=== PATIENT | female | born 1995 | race Caucasian/White ===

== ENCOUNTER → 2020-05-17 09:00 | Outpatient (BNVA) | payer SELFPAY | PROVIDERS: Family Provider Pediatrics Adolescent Medicine; PCP Pediatrics Adolescent Medicine; Visit Provider Nurse Practitioner | DX: Z34.90 Encounter for supervision of normal pregnancy, unspecified, unspecified trimester (principal) | CPT/HCPCS: 81025 ==

== ENCOUNTER 2021-01-12 04:13 | Inpatient (IN) | payer BC, SELFPAY ==
[2021-01-12] VITALS (128 sets, daily range): BP systolic 89–161; BP diastolic 50–109; PULSE 68–151; RESP 16–18; TEMP 35.9–37.7; O2SAT 87–100; BMI 31.4
[2021-01-12 05:00] LABS: Basophils % 0.2 %; Eosinophils % 0.2 %; Hematocrit 36.1 % (37.0-47.0); Lymphocytes # 1.7 10^3/uL (0.8-4.8); Lymphocytes % 12.4 %; Mean Corpuscular HGB Conc 33.2 g/dL (30.0-36.0); Mean Corpuscular Hemoglobin 29.1 pg (28.0-34.0); Mean Corpuscular Volume 87.4 fl (81-99); Mean Platelet Volume 12.9 fL (7.4-10.4); Monocytes # 0.9 10^3/uL (0.2-0.9); Monocytes % 6.5 %; Neutrophils # 10.86 10^3/uL (1.8-7.7); Neutrophils % 80.1 %; Nucleated Red Blood Cells % 0 %; Platelet Count 193 10^3/cmm (130-400); Red Blood Count 4.13 10^6/uL (4.1-5.3); Red Cell Distribution Width 13.2 % (12.1-15.1); White Blood Count 13.6 10^3/uL (4.0-10.0)
[2021-01-12] MEDS: lactated ringers 1,000 ML 999 ML IV (05:15)
--- NOTE | 2021-01-12 07:01 | ANES.PREANE2 ---
Pre-Anesthetic Assessment Pre-Anesthetic Assessment: Height/Weight: Height 1.63 m Weight 83.007 kg Temp Pulse Resp BP Pulse Ox 97.0 F L 116 H 18 130/74 99 01/12/21 00:38 01/12/21 06:56 01/12/21 03:57 01/12/21 06:56 01/12/21 06:54 Preop Diagnosis: Active Labor Familial anesthetic complications: none Was Beta Darby taken within 24 hours: N/A Was Clonidine taken within 24 hours: N/A Social: Social History: No alcohol and No tobacco Exam: Pre-Anes Outpt Exam: alert, oriented x 3 and clear to auscultation bilaterally Airway: Submandibular: WNL Cervical ROM: WNL MP: 2 Dentition: Full History/ROS: No significant history except as noted Pulmonary: Pulmonary: None reported CV/HEM: CV/HEM: None reported : : None reported Hepatic: Hepatic: None reported GI: GI: None reported Metabolic: Metabolic: None reported Musc/skel: Musc/skel: None reported Neuropsych: Neuropsych: Anxiety Anesthetic Plan: ASA status: 2 Anesthesia: Regional (specify below) Other: epidural Risk of > 500 ml blood loss (7ml/kg in children): No PFSH Anesthesia PFSH: Social History Smoking and tobacco status: never smoked Female Reproductive History: : 1 Data Anesthesia CBC & Chem 7: 01/12/21 03:30 Other Labs: Laboratory Results - last 48 hr 01/12/21 03:30 WBC 13.6 H RBC 4.13 Hgb 12.0 Hct 36.1 L MCV 87.4 MCH 29.1 MCHC 33.2 RDW 13.2 Plt Count 193 MPV 12.9 H Neut % (Auto) 80.1 Lymph % (Auto) 12.4 [place] % (Auto) 6.5 Eos % (Auto) 0.2 Baso % (Auto) 0.2 Neut # (Auto) 10.86 H Lymph # (Auto) 1.7 [place] # (Auto) 0.9 Eos # (Auto) 0.0 Baso # (Auto) 0.0 Nucleated RBC % (auto) 0 Nucleated RBCs # 0.0 Cardiac Studies: No Data to Display
--- NOTE | 2021-01-12 07:04 | ANES.PROC ---
Anesthesia Procedures Procedure/Date: 01/12/21 Epidural: Time Out Performed: Yes Consents Signed: Procedure Consent Consent: from patient Lumbar Level: L3-L4 Epidural position: sitting Epidural procedure: sterile prep of area, 1% lidocaine to numb the area, negative for paresthesia passed, test dose given, 1.5% xylocaine 1:200k epi, placed PCEA, no systemic response, sterile dressing applied, L.U.D. no apparent complications and 0.2% Ropiavacaine @ mls/hr (11) Additional Comments: PHILIP at 8cm catheter threaded to 14 cm.
[2021-01-12] MEDS: dextrose 5%-lactated ringers 1,000 ML 125 ML IV ×2 (08:42→10:08)
[2021-01-12] MEDS: oxytocin 30 UNIT/500 ML BAG IV (08:42)
--- NOTE | 2021-01-12 19:11 | PM.OPHPUD ---
Labor & Delivery H&P Update Date of Procedure: January 12, 2021 Date H&P Performed: 01/08/21 H&P update information: I have reviewed H&P completed within last 30 days, I have examined patient prior to procedure and Changes to prior documentation as noted here Changes to previous documentation: The patient is having contractions every 5 to 7 minutes. Admission Diagnosis: Preop diagnosis: Active Labor Planned procedure: Spontaneous vaginal delivery Related Problem List Diagnoses (1) 40 weeks gestation of :
--- NOTE | 2021-01-12 19:26 | PM.DELIVERY ---
Delivery Note: Date of delivery: January 12, 2021 Pre-Delivery Course: The patient is a 25-year-old at 40 weeks Estimated gestational age. The patient presented to the hospital in active labor. She was given an epidural. Her contractions began to space out. She was placed Pitocin. She had a spontaneous rupture of membranes. She progressed to complete without difficulty. Her has been unremarkable. Her blood type is O+. Her glucose screen was negative. Her GBS status is negative. Her Covid status is negative. The remainder of her labs are within normal limits. Delivery: DELIVERY: The patient progressed to complete without difficulty. She delivered a female with a weight of 7 pounds 7 ounces with Apgars of 9, 9. The baby was delivered from the CRISTY position and placed on the mother's abdomen. The cord was then clamped and cut 1 minute after delivery. There was a nuchal cord x1. A true knot was noted in the cord.. Terminal meconium was noted.. The placenta and 3 vessel cord were delivered intact shortly thereafter. The perineum and vaginal vault were carefully examined. A posterior left vaginal wall laceration was noted. It was repaired with 3-0 Vicryl in a running stitch. Both the mother and the baby were in stable condition. A&P Assessment and plan (1) 40 weeks gestation of : I anticipate routine care. If she does well, I anticipate she will be discharged tomorrow evening. Status: Acute Coding Level of Care Code Acute Credit Correspondence Clerk for Chg Fwd Diagnoses 40 weeks gestation of Z3A.40
[2021-01-12] MEDS: benzocaine-menthol 78 gm Canister 1 SPRAY TOPICAL (21:47)
[2021-01-12] MEDS: lanolin oint 7 gm 1 APPLIC TOPICAL (21:47)
[2021-01-12] MEDS: ibuprofen 800 mg tablet PO (21:47)
[2021-01-13 00:30] VITALS: BP 139/76; PULSE 72; TEMP 36.7; O2SAT 98
[2021-01-13 02:40] VITALS: BP 125/63; PULSE 71; RESP 14; O2SAT 97
[2021-01-13 04:30] VITALS: BP 125/81; PULSE 76; TEMP 36.2; O2SAT 97
[2021-01-13 06:06] LABS: Hematocrit 30.5 % (37.0-47.0); Hemoglobin 10.1 g/dL (11.5-15.3); Mean Corpuscular HGB Conc 33.1 g/dL (30.0-36.0); Mean Corpuscular Hemoglobin 29.1 pg (28.0-34.0); Mean Corpuscular Volume 87.9 fl (81-99); Mean Platelet Volume 12.1 fL (7.4-10.4); Platelet Count 150 10^3/cmm (130-400); Red Blood Count 3.47 10^6/uL (4.1-5.3); Red Cell Distribution Width 13.3 % (12.1-15.1); White Blood Count 14.7 10^3/uL (4.0-10.0)
--- NOTE | 2021-01-13 07:35 | P.DS_ITS ---
Discharge Providers ASSOCIATE PROFESSOR OF KINESIOLOGY Date of Admission: 01/12/21 04:13 Date of Discharge: 01/13/21 Attending Provider at Admission: Kentrell Welch MD Attending Provider at Discharge: Kentrell Welch MD Primary Care Provider: Clarence Bonds Jr, MD Diagnoses at Discharge Discharge Diagnosis (1) 40 weeks gestation of : Status: Acute Reason for Visit Reason for Visit: contractions Hospital Course Hospital Course The patient is a 25-year-old 1 at 40 weeks who presented to the hospital in active labor. She received an epidural. Her labor was augmented with Pitocin. She had spontaneous rupture of membranes. She progressed to complete without difficulty and pushed for about 45 minutes and had an unremarkable delivery of a healthy-appearing term female infant. Her course was unremarkable. Her bleeding was within normal limits. Her pain was well con trolled. She breast-fed well. There were no concerns. Information Peripartum Data: Delivery Method: Vaginal Physical Exam Narrative: EXAM NARRATIVE: The patient is alert. She appears comfortable. Her heart has a regular rate and rhythm with no murmurs appreciated. Lungs are clear to auscultation bilaterally. Her fundus is firm and below the umbilicus. Discharge Data Data Completed and Pending: Labs from last 24 hours 01/13/21 05:54 WBC 14.7 H RBC 3.47 L Hgb 10.1 L Hct 30.5 L MCV 87.9 MCH 29.1 MCHC 33.1 RDW 13.3 Plt Count 150 MPV 12.1 H Vitals: Last Vital Signs Temp 97.1 F L 01/13/21 04:30 Pulse 76 01/13/21 04:30 Resp 14 01/13/21 02:40 BP 125/81 01/13/21 04:30 Pulse Ox 97 01/13/21 04:30 Discharge Plan Discharge Patient Disposition: Home Condition: Stable Prescriptions: New ibuprofen 800 mg Tablet 800 mg PO TID Qty: 45 RF: 0 Continued prenat.vits,rigo,dvk-wwza-ahqfv Tablet 1 tab PO DAILY RF: 0 Discharge Orders: Discharge Order (Routine); Ordered 01/13/21 Ordered By: Kentrell Welch Referrals: Kentrell Welch MD [Physician] - 6 Weeks Discharge Diet: Usual diet Discharge Activity: Limit activity as instructed Patient Instructions: Depression (DC), Bleeding (DC), Pre eclampsia and Eclampsia After Delivery (GEN), OB Discharge Report, OB Food/Drug Interaction Guide, Opioid Safety, OB Home Care, OB Vaginal Deliveries - [facility] Discharge Attestations ASSOCIATE PROFESSOR OF KINESIOLOGY Time Spent in Discharge Care*: less than 30 min Specific Discharge Activities: Specific discharge activities: educating patient and educating and/or supporting family/caregiver Coding Level of Care Code Acute It Application Architect for Chg Fwd Diagnoses 40 weeks gestation of Z3A.40
[2021-01-13] MEDS: docusate sodium 100 mg Capsule PO (09:28)
[2021-01-13] MEDS: prenatal vitamin Capsule 1 CAP PO (09:28)
[2021-01-13] MEDS: ibuprofen 800 mg tablet PO ×2 (09:28→16:03)
[2021-01-13 10:00] VITALS: BP 144/82; PULSE 78; TEMP 36.7
[2021-01-13 16:00] VITALS: BP 125/73; PULSE 73; TEMP 36.7
[2021-01-13 20:40] VITALS: BP 123/79; PULSE 90; RESP 16; O2SAT 97
--- NOTE | 2021-01-14 07:38 | ANE.PACU2 ---
Inpatient post-anesthesia follow up: Airway intact: Yes Vital signs: Temperature 98.0 F Pulse Rate 90 Respiratory Rate 16 Blood Pressure 123/79 Pulse Oximetry 97 Oxygen Delivery Me thod Room Air Oxygen Flow Rate Fraction of Inspir ed Oxygen Hydration adequate: Yes Nausea and vomiting: No Pain level: 1 Mental status: Baseline Additional Comments: EMR Review
== END 2021-01-13 19:45 | disposition home or self-care (01) | DRG 806 ==
LOC: OPOB 04:14 → OBGYN 04:14
PROVIDERS: Admitting Provider Family Medicine; PCP Pediatrics Adolescent Medicine; Visit Provider Family Medicine
DX: O69.2XX0 Labor and delivery complicated by other cord entanglement, with compression, not applicable or unspecified (principal); O71.4 Obstetric high vaginal laceration alone; Z37.0 Single live birth; Z3A.40 40 weeks gestation of pregnancy
CPT/HCPCS: 12345; 36415; 59025; 59409; 85025; 85027; 99211; J2795

== ENCOUNTER 2021-03-01 06:42 | Day surgery (SDC) | payer BC, SELFPAY ==
[2021-03-01] VITALS (15 sets, daily range): BP systolic 131–159; BP diastolic 78–115; PULSE 106–130; RESP 12–20; TEMP 36.2–39.2; O2SAT 92–98; BMI 26.6
[2021-03-01] MEDS: sodium chloride 0.9% 1,000 ML 999 ML IV (07:45)
[2021-03-01 08:14] LABS: Eosinophils % 1.6 %; Mean Corpuscular HGB Conc 32.5 g/dL (30.0-36.0); Mean Corpuscular Volume 83.6 fl (81-99); Nucleated Red Blood Cells % 0 %
--- NOTE | 2021-03-01 08:20 | ED_ITS ---
Documented by User: NITESH Cisneros 03/01/21 10:25 HPI - COVID General: Chief Complaint: Abdominal Pain Stated Complaint: COV positive, abdominal pain Time Seen by Provider: 03/01/21 08:20 Triage information: Has fever, cough or shortness of breath . Exposure to COVID + person last 14 days History of Present Illness: HPI Narrative: Patient presents with abdominal discomfort intermittently since February 02. Was treated for UTI and got feeling better after 5 days of antibiotics after urine came back showing UTI. Patient went back second week in February thinks she may have a UTI again because she is having some abdominal discomfort and fever and some nausea. Patient was diagnosed with COVID last Wednesday. Patient had nausea and vomiting last couple days and feels dehydrated. Patient is currently breast-feeding and has been for 7 weeks. Last day she had a fever was yesterday. Does complain dry cough. complaint: known COVID positive Prior covid testing: yes, results known Prior testing date: 02/18/21 COVID 19 common symptoms: positive fever(s), chills, non-productive cough, body aches, nausea and vomiting; negative headache(s), throat pain or nasal conges tion COVID 19 other sytmptoms: negative chest pain Pertinent comorbid conditions: other Treatment prior to arrival: acetaminophen and ibuprofen COVID Results: No Data to Display Review of Systems Const: Reports: fever(s), chills and body aches Eyes: Denies: change in vision or blurry vision ENMT: Denies: throat pain or nasal congestion Card: Denies: chest pain or dyspnea on exertion Resp: Reports: non-productive cough GI: Reports: nausea and vomiting Musc: Denies: extremity pain Skin/Breast: Denies: rash Neuro: Denies: headache(s) Psych: Denies: anxiety or depression [place]/Lymph: Denies: easy bruising PFSH ED PFSH: Medical History (Updated 03/01/21 @ 13:50 by Percy Lima MD) COVID-19 Surgical History (Updated 03/01/21 @ 11:38 by Percy Lima MD) Status post laparoscopic cholecystectomy (03/01/21) Social History Smoking and tobacco status: never smoked Physical Exam Narrative: EXAM NARRATIVE: Patient does not appear ill. Const: COMMON NORMALS: no acute distress, average body habitus and patient oriented x3 HENMT: COMMON NORMALS: normocephalic HEAD & SCALP: normal to inspection and normocephalic FACE & SINUS: normal facial exam Eye: COMMON NORMALS: conjunctivae normal GENERAL EYE: appearance normal, both eyes and all related structures CONJUNCTIVA: Yes conjunctivae normal Neck/C-Spine: COMMON NORMALS: no JVD Chest: COMMONS NORMALS: normal inspection of the chest Resp: COMMON NORMALS: normal respiratory effort Cardio: COMMON NORMALS: no JVD and regular rhythm RATE: tachycardic RHYTHM: regular rhythm GI: INSPECTION: Yes normal to inspection AUSCULTATION: Yes normoactive bowel sounds PALPATION: Yes Tenderness to palpation present (GI) (And generalized) Extremity: COMMON NORMALS: normal to inspection and full ROM Neuro: COMMON NORMALS: patient oriented x3 Skin: COMMON NORMALS: no rashes or lesions noted GENERAL SKIN EXAM: no gwen hes or lesions noted Course Vital Signs: Vital signs: Vital Signs Temperature 98.5 F 03/01/21 15:15 Pulse Rate 112 H 03/01/21 15:15 Respiratory Rate 16 03/01/21 15:15 Blood Pressure 132/78 03/01/21 15:15 Pulse Oximetry 98 03/01/21 15:15 MDM - COVID MDM Narrative Medical decision making narrative: Patient is young female who is 7 weeks .'s been having abdominal discomfort since February 02. Has tested positive for UTI and has had COVID. Patient with continued abdominal pain today. Patient is tachycardic. Laboratory showing elevated white count elevated transaminases. D-dimer was 1.2. At [place] criteria is 1.3% chance of PE. Lipase was normal at 20 gallbladder ultrasound come back and show acute calculus cholecystitis. Discuss ed case with Dr. Tejeda call Dr. iLma spoke with him he is going to get surgery. We will retest patient for COVID with an antigen test. Because patient said she really has not had COVID symptoms. Lab Data Result diagrams: 03/01/21 08:03 03/01/21 08:03 Labs: Lab Results 03/01/21 03/01/21 03/01/21 08:03 08:03 08:03 WBC 14.1 10^3/uL H 10^3/uL (4.0-10.0) RBC 4.52 10^6/uL 10^6/uL (4.1-5.3) Hgb 12.3 g/dL g/dL (11.5-15.3) Hct 37.8 % % (37.0-47.0) MCV 83.6 fl fl (81-99) MCH 27.2 pg L pg (28.0-34.0) MCHC 32.5 g/dL g/dL (30.0-36.0) RDW 12.7 % % (12.1-15.1) Plt Count 331 10^3/cmm 10^3/cmm (130-400) MPV 10.7 fL H fL (7.4-10.4) Neut % (Auto) 74.2 % % Lymph % (Auto) 9.8 % % [place] % (Auto) 13.9 % % Eos % (Auto) 1.6 % % Baso % (Auto) 0.1 % % Neut # (Auto) 10.44 10^3/uL H 10^3/uL (1.8-7.7) Lymph # (Auto) 1.4 10^3/uL 10^3/uL (0.8-4.8) [place] # (Auto) 2.0 10^3/uL H 10^3/uL (0.2-0.9) Eos # (Auto) 0.2 10^3/uL 10^3/uL (0.0-0.8) Baso # (Auto) 0.0 10^3/uL 10^3/uL (0.0-0.1) Nucleated RBC % (auto) 0 % % Nucleated RBCs # 0.0 /100WBC /100WBC D-Dimer 1.61 ug/mIFEU H ug/mIFEU (0-0.59) Sodium 138 mmol/L mmol/L (136-145) Potassium 3.3 mmol/L L mmol/L (3.5-5.1) Chloride 99 mmol/L mmol/L (98-107) Carbon Dioxide 22 mmol/L mmol/L (22-29) Anion Gap 20.3 H (5-19) BUN 6 mg/dL mg/dL (6-20) Creatinine 0.5 mg/dL mg/dL (0.5-0.9) GFR Calculation 152.9 mL/min H mL/min (90-130) Glucose 99 mg/dL mg/dL (65-115) Calculated Osmolality 284 mOsm/kg L mOsm/kg (285-295) Calcium 9.6 mg/dL mg/dL (8.5-10.5) Total Bilirubin 0.3 mg/dL mg/dL (0.15-1.2) AST 31 U/L U/L (0-32) ALT 53 U/L H U/L (0-33) Alkaline Phosphatase 113 IU/L H IU/L (35-105) Total Protein 8.3 g/dL g/dL (6.6-8.7) Albumin 4.0 g/dL g/dL (3.5-5.2) Globulin 4.3 g/dL g/dL (1.3-4.6) Lipase 21 U/L U/L (13-60) HCG, Qual Urine Color Urine Appearance Urine pH Ur Specific [place] Urine Protein Urine Glucose (UA) Urine Ketones Urine Blood Urine Nitrate Urine Bilirubin Urine Urobilinogen Ur Leukocyte Esterase Urine RBC Urine WBC Ur Squamous Epith Cells Amorphous Sediment Urine Bacteria Urine Mucus 03/01/21 03/01/21 08:35 08:35 WBC RBC Hgb Hct MCV MCH MCHC RDW Plt Count MPV Neut % (Auto) Lymph % (Auto) [place] % (Auto) Eos % (Auto) Baso % (Auto) Neut # (Auto) Lymph # (Auto) [place] # (Auto) Eos # (Auto) Baso # (Auto) Nucleated RBC % (auto) Nucleated RBCs # D-Dimer Sodium Potassium Chloride Carbon Dioxide Anion Gap BUN Creatinine GFR Calculation Glucose Calculated Osmolality Calcium Total Bilirubin AST ALT Alkaline Phosphatase Total Protein Albumin Globulin Lipase HCG, Qual Negative (Negative) Urine Color Dark yellow (Yellow) Urine Appearance Clear (CLEAR) Urine pH 5 (5-7) Ur Specific [place] 1.015 (1.005-1.030) Urine Protein 2+ H (Negative) Urine Glucose (UA) Norm (Normal) Urine Ketones 1+ H (Negative) Urine Blood Neg (Negative) Urine Nitrate Negative (Negative) Urine Bilirubin Neg (Negative) Urine Urobilinogen 1 mg/dL H mg/dL (Negative) Ur Leukocyte Esterase Negative (Negative) Urine RBC None /hpf /hpf (0-2) Urine WBC 0-4 /hpf H /hpf (0-5) Ur Squamous Epith Cells 0-4 /hpf H /hpf (0-5) Amorphous Sediment Not Reportable Urine Bacteria Trace /hpf /hpf (NONE) Urine Mucus 1+ /hpf /hpf COVID Results: No Data to Display Discharge Plan Discharge Patient Disposition: Placed in Observation Clinical Impression: Acute calculous cholecystitis Coding Level of Care Code ED Manager Cargo for Chg Fwd Exam Comprehensive Documented by User: Robin Pressley MD 03/05/21 22:01 HPI - COVID General: Chief Complaint: Abdominal Pain Stated Complaint: COV positive, abdominal pain Time Seen by Provider: 03/01/21 08:20 COVID Results: No Data to Display [facility] ED PFSH: Medical History (Updated 03/01/21 @ 13:50 by Percy Lima MD) COVID-19 Surgical History (Updated 03/01/21 @ 11:38 by Percy Lima MD) Status post laparoscopic cholecystectomy (03/01/21) Social History Smoking and tobacco status: never smoked Course Vital Signs: Vital signs: Vital Signs Temperature 98.5 F 03/01/21 15:15 Pulse Rate 112 H 03/01/21 15:15 Respiratory Rate 16 03/01/21 15:15 Blood Pressure 132/78 03/01/21 15:15 Pulse Oximetry 98 03/01/21 15:15 MDM - COVID MDM Narrative Medical decision making narrative: I reviewed documentation regarding this patient's case. I discussed the case with Brien Reese NP. I reviewed laboratory studies and imaging. Due to computer error or recent update with integration problem this note appears blank however I reviewed the separate and complete documentation by Brien Reese NP. Robin Pressley MD Emergency Medicine Lab Data Result diagrams: 03/01/21 08:03 03/01/21 08:03 Labs: Lab Results 03/01/21 03/01/21 03/01/21 08:03 08:03 08:03 WBC 14.1 10^3/uL H 10^3/uL (4.0-10.0) RBC 4.52 10^6/uL 10^6/uL (4.1-5.3) Hgb 12.3 g/dL g/dL (11.5-15.3) Hct 37.8 % % (37.0-47.0) MCV 83.6 fl fl (81-99) MCH 27.2 pg L pg (28.0-34.0) MCHC 32.5 g/dL g/dL (30.0-36.0) RDW 12.7 % % (12.1-15.1) Plt Count 331 10^3/cmm 10^3/cmm (130-400) MPV 10.7 fL H fL (7.4-10.4) Neut % (Auto) 74.2 % % Lymph % (Auto) 9.8 % % [place] % (Auto) 13.9 % % Eos % (Auto) 1.6 % % Baso % (Auto) 0.1 % % Neut # (Auto) 10.44 10^3/uL H 10^3/uL (1.8-7.7) Lymph # (Auto) 1.4 10^3/uL 10^3/uL (0.8-4.8) [place] # (Auto) 2.0 10^3/uL H 10^3/uL (0.2-0.9) Eos # (Auto) 0.2 10^3/uL 10^3/uL (0.0-0.8) Baso # (Auto) 0.0 10^3/uL 10^3/uL (0.0-0.1) Nucleated RBC % (auto) 0 % % Nucleated RBCs # 0.0 /100WBC /100WBC D-Dimer 1.61 ug/mIFEU H ug/mIFEU (0-0.59) Sodium 138 mmol/L mmol/L (136-145) Potassium 3.3 mmol/L L mmol/L (3.5-5.1) Chloride 99 mmol/L mmol/L (98-107) Carbon Dioxide 22 mmol/L mmol/L (22-29) Anion Gap 20.3 H (5-19) BUN 6 mg/dL mg/dL (6-20) Creatinine 0.5 mg/dL mg/dL (0.5-0.9) GFR Calculation 152.9 mL/min H mL/min (90-130) Glucose 99 mg/dL mg/dL (65-115) Calculated Osmolality 284 mOsm/kg L mOsm/kg (285-295) Calcium 9.6 mg/dL mg/dL (8.5-10.5) Total Bilirubin 0.3 mg/dL mg/dL (0.15-1.2) AST 31 U/L U/L (0-32) ALT 53 U/L H U/L (0-33) Alkaline Phosphatase 113 IU/L H IU/L (35-105) Total Protein 8.3 g/dL g/dL (6.6-8.7) Albumin 4.0 g/dL g/dL (3.5-5.2) Globulin 4.3 g/dL g/dL (1.3-4.6) Lipase 21 U/L U/L (13-60) HCG, Qual Urine Color Urine Appearance Urine pH Ur Specific [place] Urine Protein Urine Glucose (UA) Urine Ketones Urine Blood Urine Nitrate Urine Bilirubin Urine Urobilinogen Ur Leukocyte Esterase Urine RBC Urine WBC Ur Squamous Epith Cells Amorphous Sediment Urine Bacteria Urine Mucus 03/01/21 03/01/21 08:35 08:35 WBC RBC Hgb Hct MCV MCH MCHC RDW Plt Count MPV Neut % (Auto) Lymph % (Auto) [place] % (Auto) Eos % (Auto) Baso % (Auto) Neut # (Auto) Lymph # (Auto) [place] # (Auto) Eos # (Auto) Baso # (Auto) Nucleated RBC % (auto) Nucleated RBCs # D-Dimer Sodium Potassium Chloride Carbon Dioxide Anion Gap BUN Creatinine GFR Calculation Glucose Calculated Osmolality Calcium Total Bilirubin AST ALT Alkaline Phosphatase Total Protein Albumin Globulin Lipase HCG, Qual Negative (Negative) Urine Color Dark yellow (Yellow) Urine Appearance Clear (CLEAR) Urine pH 5 (5-7) Ur Specific [place] 1.015 (1.005-1.030) Urine Protein 2+ H (Negative) Urine Glucose (UA) Norm (Normal) Urine Ketones 1+ H (Negative) Urine Blood Neg (Negative) Urine Nitrate Negative (Negative) Urine Bilirubin Neg (Negative) Urine Urobilinogen 1 mg/dL H mg/dL (Negative) Ur Leukocyte Esterase Negative (Negative) Urine RBC None /hpf /hpf (0-2) Urine WBC 0-4 /hpf H /hpf (0-5) Ur Squamous Epith Cells 0-4 /hpf H /hpf (0-5) Amorphous Sediment Not Reportable Urine Bacteria Trace /hpf /hpf (NONE) Urine Mucus 1+ /hpf /hpf COVID Results: No Data to Display Discharge Plan Discharge Patient Disposition: Placed in Observation Clinical Impression: Acute calculous cholecystitis Coding Level of Care Code ED Manager Cargo for Clement Fwd Exam Comprehensive
[2021-03-01 08:25] LABS: Basophils % 0.1 %; Eosinophils # 0.2 10^3/uL (0.0-0.8); Hematocrit 37.8 % (37.0-47.0); Hemoglobin 12.3 g/dL (11.5-15.3); Lymphocytes # 1.4 10^3/uL (0.8-4.8); Lymphocytes % 9.8 %; Mean Corpuscular Hemoglobin 27.2 pg (28.0-34.0); Mean Platelet Volume 10.7 fL (7.4-10.4); Monocytes % 13.9 %; Neutrophils # 10.44 10^3/uL (1.8-7.7); Neutrophils % 74.2 %; Platelet Count 331 10^3/cmm (130-400); Red Blood Count 4.52 10^6/uL (4.1-5.3); Red Cell Distribution Width 12.7 % (12.1-15.1); White Blood Count 14.1 10^3/uL (4.0-10.0)
[2021-03-01 08:29] LABS: Alanine Aminotransferase 53 U/L (0-33); Alkaline Phosphatase 113 IU/L (35-105); Anion Gap 20.3 (5-19); Aspartate Amino Transferase 31 U/L (0-32); Blood Urea Nitrogen 6 mg/dL (6-20); Calcium 9.6 mg/dL (8.5-10.5); Carbon Dioxide 22 mmol/L (22-29); Chloride 99 mmol/L (98-107); Globulin 4.3 g/dL (1.3-4.6); Glomerular Filtration Rate 152.9 mL/min (90-130); Glucose 99 mg/dL (65-115); Lipase 21 U/L (13-60); Osmolality Calculated 284 mOsm/kg (285-295); Potassium 3.3 mmol/L (3.5-5.1); Sodium 138 mmol/L (136-145); Total Bilirubin 0.3 mg/dL (0.15-1.2); Total Protein 8.3 g/dL (6.6-8.7)
--- NOTE | 2021-03-01 08:42 | USR_ITS ---
PROCEDURE INFORMATION: Exam: US Abdomen, Limited; Right Upper Quadrant Exam date and time: 03/01/2021 8:42 AM Age: 25 years old Clinical indication: Abdominal pain; Additional info: Abd pain, recent pregnacy, elevated transaminases TECHNIQUE: Imaging protocol: US abdomen. Real time ultrasound with image documentation. Limited exam focused on the right upper quadrant. COMPARISON: US OB >= 14 weeks fetus [id number] 08/21/2020 9:52 AM FINDINGS: Liver: The liver measures approximately 15.5 cm in the sagittal plane (my measurement). No focal liver mass or intrahepatic biliary ductal dilatation. Gallbladder: The gallbladder is distended. There is cholelithiasis. There is additional material within the gallbladder lumen, potentially sludge and/or infected bile. The gallbladder wall is thickened. The technologist reported a positive sonographic Vaz's sign. Common bile duct: The visualized extrahepatic bile duct measures approximately 5 mm in diameter. Pancreas: The visualized portion of the pancreas is within normal limits. Right kidney: The right kidney measures approximately 11.3 cm in length. Normal parenchymal echogenicity. No hydronephrosis. Parenchymal scarring or lobulation. Aorta: The visualized portion of the abdominal aorta is within normal limits. Portal venous: There is hepatopetal flow in the main portal vein on Doppler evaluation. Inferior vena cava: The visualized portion of the inferior vena cava is within normal limits. US/US gall bladder [id number] IMPRESSION: Acute calculus cholecystitis.
[2021-03-01 08:48] LABS: D Dimer 1.61 ug/mIFEU (0-0.59)
[2021-03-01 08:55] LABS: HCG Qualitative Urine. Negative (Negative)
[2021-03-01 08:58] LABS: Slide Review Slide Review Perform
[2021-03-01] MEDS: potassium chloride ER 20 mEq Tablet PO ×2 (09:35→10:04)
[2021-03-01] MEDS: ondansetron 2 mg/ML SDV 2 mL 4 MG IVP (09:40)
[2021-03-01 10:29] LABS: Add Urine Culture? No; Add Urine Microscopic? YES; Bacteria Urine TRACE /hpf; Bilirubin Urine Neg (Negative); Blood Urine Neg (Negative); Glucose Urine UA Norm (Normal); Ketones Urine 1+ (Negative); Leukocyte Esterase Urine Negative (Negative); Mucus Urine 1+ /hpf; Nitrate Urine Negative (Negative); Protein Urine 2+ (Negative); Specific Gravity, Urine 1.015 (1.005-1.030); Squamous Epithelial Cell Urine 0-4 /hpf (0-5); Urine Appearance Clear (CLEAR); Urine Color Dark Yellow (Yellow); Urobilinogen Urine 1 mg/dL (Negative); WBC Urine 0-4 /hpf (0-5); pH Urine 5 (5-7)
[2021-03-01] MEDS: morphine 4 mg/mL SDV 1 mL IVP (10:48)
--- NOTE | 2021-03-01 10:53 | PC.NURSE ---
Ordered Levaquin and Flagyl given to ANASTASIYA Dawn from OR to administer.
--- NOTE | 2021-03-01 11:34 | P.HP_ITS ---
Providers/Chief Complaint Primary Care Provider: Clarence Bonds Jr, MD Chief Complaint: COV positive, abdominal pain History of Present Illness Vanessa Mendes is a 25 year old female who is 6 weeks and has been dealing with abdominal pain since late January. Patient states that earlier this week she started having worsening abdominal pain associated with nausea and vomiting over the last few days. She also had some fevers but denies any chills. No constipation or diarrhea. She had GERD during which has resolved Review of Systems General: Reports: 10 or more systems reviewed and unremarkable except in HPI and below Medications/Allergies Home Medications Medication Instructions Recorded Confirmed Last Taken Type ibuprofen 800 mg PO TID #45 tab 01/13/21 03/01/21 Unknown Rx prenat.vits,rigo,cdf-[id number] 1 tab PO DAILY 01/13/21 03/01/21 2 Days Ago History ~01/11/21 Allergies Allergy/AdvReac Type Severity Reaction Status Date / Time cephalexin [From Keflex] Allergy Unknown Verified 05/16/20 18:45 PFSH Acute PFSH: Social History Smoking and tobacco status: never smoked Vitals/I&O/Wt Last Vital Signs Temp 102.5 F H 03/01/21 10:55 Pulse 112 H 03/01/21 10:55 Resp 20 H 03/01/21 10:55 BP 159/115 03/01/21 10:55 Pulse Ox 97 03/01/21 10:55 02/28/21 03/01/21 03/01/21 22:59 06:59 14:59 Intake Total 1000 / 1000 Balance 1000 / 1000 Weight last 48 hrs Weight 155 lb Physical Exam Narrative: EXAM NARRATIVE: HEENT: Normocephalic Eye: Sclera /conjunctiva normal Respiratory and chest: Bilateral clear breath sounds on auscultation Cardiovascular: Normal S1 and S2 heart sounds Abdomen: Soft to palpation, tender right upper quadrant, positive Vaz sign Neurological: Oriented to place person and time Skin: Intact, no lesions appreciated on gross exam Data : 03/01/21 08:03 03/01/21 08:03 A&P Assessment and plan (1) Acute calculous cholecystitis: 25-year-old female who has been dealing with right upper quadrant pain, nausea and vomiting with WBC of 14.1 and ultrasound showing acute calculus cholecystitis. Patient received IV Levaquin and Flagyl Plan for laparoscopic possible open cholecystectomy Procedure, risks, benefits and alternatives have been discussed with the patient who wishes to proceed with surgery. Status: Acute Attestations Medical Necessity Statement*: Acute calculus cholecystitis Coding Level of Care Code Acute Radiology Assistant for [facility] Diagnoses Acute calculous cholecystitis K80.00
[2021-03-01] MEDS: metroNIDAZOLE IV 500 MG/100 ML PREMIX 100 MG IV (11:38)
[2021-03-01] MEDS: levofloxacin-dextrose 5 % 750 MG/150 ML PREMIX 100 MG IV (11:47)
--- NOTE | 2021-03-01 11:54 | P.ANESASSM_ITS ---
Pre-Anesthetic Assessment Pre-Anesthetic Assessment: Height/Weight: Height 1.63 m Weight 70.307 kg Temp Pulse Resp BP Pulse Ox 102.5 F H 112 H 20 H 159/115 97 03/01/21 10:55 03/01/21 10:55 03/01/21 10:55 03/01/21 10:55 03/01/21 10:55 Preop Diagnosis: Acute calculus cholecystitis Proposed Procedure: Operation Date: 03/01/21 11:30 Proposed Procedures p Laparoscopic Cholecystectomy(Not Applicable) - Percy Lima MD Was Beta Darby taken within 24 hours: N/A Was Clonidine taken within 24 hours: N/A Social: Social History: No alcohol and No tobacco Exam: Pre-Anes Outpt Exam: alert, oriented x 3, clear to auscultation rowena aterally and regular rate & rhythm Airway: Submandibular: WNL Cervical ROM: WNL MP: 2 Dentition: Full History/ROS: No significant history except as noted Anesthetic Plan: ASA status: 2 Anesthesia: General (Mod RSI--7weeks ) Risk of > 500 ml blood loss (7ml/kg in children): No PFSH Anesthesia PFSH: Surgical History (Updated 03/01/21 @ 11:38 by Percy Lima MD) Status post laparoscopic cholecystectomy (03/01/21) Social History Smoking and tobacco status: never smoked Data Anesthesia CBC & Chem 7: 03/01/21 08:03 03/01/21 08:03 Other Labs: Laboratory Results - last 48 hr 03/01/21 03/01/21 03/01/21 08:03 08:03 08:03 WBC 14.1 H RBC 4.52 Hgb 12.3 Hct 37.8 MCV 83.6 MCH 27.2 L MCHC 32.5 RDW 12.7 Plt Count 331 MPV 10.7 H Neut % (Auto) 74.2 Lymph % (Auto) 9.8 [place] % (Auto) 13.9 Eos % (Auto) 1.6 Baso % (Auto) 0.1 Neut # (Auto) 10.44 H Lymph # (Auto) 1.4 [place] # (Auto) 2.0 H Eos # (Auto) 0.2 Baso # (Auto) 0.0 Nucleated RBC % (auto) 0 Nucleated RBCs # 0.0 D-Dimer 1.61 H Sodium 138 Potassium 3.3 L Chloride 99 Carbon Dioxide 22 Anion Gap 20.3 H BUN 6 Creatinine 0.5 GFR Calculation 152.9 H Glucose 99 Calculated Osmolality 284 L Calcium 9.6 Total Bilirubin 0.3 AST 31 ALT 53 H Alkaline Phosphatase 113 H Total Protein 8.3 Albumin 4.0 Globulin 4.3 Lipase 21 HCG, Qual Urine Color Urine Appearance Urine pH Ur Specific [place] Urine Protein Urine Glucose (UA) Urine Ketones Urine Blood Urine Nitrate Urine Bilirubin Urine Urobilinogen Ur Leukocyte Esterase Urine RBC Urine WBC Ur Squamous Epith Cells Amorphous Sediment Urine Bacteria Urine Mucus 03/01/21 03/01/21 08:35 08:35 WBC RBC Hgb Hct MCV MCH MCHC RDW Plt Count MPV Neut % (Auto) Lymph % (Auto) [place] % (Auto) Eos % (Auto) Baso % (Auto) Neut # (Auto) Lymph # (Auto) [place] # (Auto) Eos # (Auto) Baso # (Auto) Nucleated RBC % (auto) Nucleated RBCs # D-Dimer Sodium Potassium Chloride Carbon Dioxide Anion Gap BUN Creatinine GFR Calculation Glucose Calculated Osmolality Calcium Total Bilirubin AST ALT Alkaline Phosphatase Total Protein Albumin Globulin Lipase HCG, Qual Negative Urine Color Dark yellow Urine Appearance Clear Urine pH 5 Ur Specific [place] 1.015 Urine Protein 2+ H Urine Glucose (UA) Norm Urine Ketones 1+ H Urine Blood Neg Urine Nitrate Negative Urine Bilirubin Neg Urine Urobilinogen 1 H Ur Leukocyte Esterase Negative Urine RBC None Urine WBC 0-4 H Ur Squamous Epith Cells 0-4 H Amorphous Sediment Not Reportable Urine Bacteria Trace Urine Mucus 1+ Cardiac Studies: No Data to Display
--- NOTE | 2021-03-01 13:05 | SUR.OPER ---
family updated of surgical status
--- NOTE | 2021-03-01 13:50 | PM.OP ---
Operative Report Date of procedure: March 01, 2021 Pre-op Diagnosis: Acute calculus cholecystitis Post-op diagnosis: same Procedure Done: Laparoscopic cholecystectomy Specimens removed/disposition: Gallbladder Surgeon: Percy Lima Anesthesia: General Condition: stable Disposition: PACU Procedure: The patient was taken to the operating room and was intubated under general anesthesia. After the antibiotic had been administered, the abdomen was prepped and draped in a sterile manner. Using a #15 blade, a 1 centimeter infraumbilical curvilinear incision was made and using an open Bita technique the peritoneal cavity was entered. A 10 millimeter port was placed and 15 millimeters of pneumoperitoneum was created. A 10 millimeter, 30 degrees scope was then introduced. Three 5 millimeter ports were placed in the epigastric, midclavicular and the anterior axillary line two fingerbreadths below the costal margin on the right side under the direct visualization. The gallbladder was acutely inflamed, wall was thickened and patient had a large gallbladder. Bile was aspirated using an aspiration needle to decompress the gallbladder. Ratcheted forceps were introduced into the lateral most port and was used to retract the fundus of the gallbladder cephalad and using forceps the infundibulum of the gallbladder was retracted laterally. Using L-hook cautery the peritoneum overlying the Calot's triangle was opened medially and laterally until the cystic duct and the cystic artery were skeletonized. Dissection was carried along the body of the gallbladder and after ensuring critical view of safety, 4 clips applied on the cystic duct and 3 clips applied on the anterior and posterior branch of the cystic artery and cut leaving, 3 clips on the remaining portion of the duct and 2 clips on the remaining portion of the anterior and posterior branch of the artery. The rest of the gallbladder was dissected off the liver using L-hook cautery. The body and fundus of the gallbladder was densely adherent to the liver making dissection extremely difficult since plane could not be identified. There was no bleeding or bile leaking noted from the gallbladder fossa and the clips appeared to be in place. An EndoCatch bag was introduced to remove the gallbladder. All the ports were removed under direct visualization and there was no bleeding noted from the port sites. The fascia of the umbilicus was closed using [id number] 0 Vicryl sutures and the subcutaneous tissue was approximated using 3-0 Vicryl sutures. The skin at all four ports were closed using 4-0 Monocryl and Dermabond. A total of 10 millimeters of 0.5% Marcaine was infiltrated around the port sites. The patient was stable throughout the procedure.
--- NOTE | 2021-03-01 13:55 | P.PCN_ITS ---
Documented by User: Yadiel Jones CRNA 03/01/21 13:57 PACU note PACU note: VSS, Good respiratory effort, report to ADDICTIONS COUNSELOR ASSISTANT Post-Anesthesia Exam: awake
--- NOTE | 2021-03-01 13:55 | PM.PACU ---
Documented by User: Yadiel Jones CRNA 03/01/21 13:57 PACU note PACU note: VSS, Good respiratory effort, report to ANGLE SHEAR SET UP OPERATOR Post-Anesthesia Exam: awake
--- NOTE | 2021-03-02 07:44 | ANE.PACU2 ---
Inpatient post-anesthesia follow up: Airway intact: Yes Vital signs: Temperature 98.5 F Pulse Rate 112 Respiratory Rate 16 Blood Pressure 132/78 Pulse Oximetry 98 Oxygen Delivery Me thod Room Air Oxygen Flow Rate Fraction of Inspir ed Oxygen Hydration adequate: Yes Nausea and vomiting: No Pain level: 2 Mental status: Baseline
== END 2021-03-01 15:20 | disposition home or self-care (01) ==
LOC: ER 10:05 → OR 10:23
PROVIDERS: Emergency Provider Nurse Practitioner Family; PCP Pediatrics Adolescent Medicine; Visit Provider Surgery
PROC: 0FT44ZZ Resection of Gallbladder, Percutaneous Endoscopic Approach (ICD-10-PCS; CPT 47562; principal; 2021-03-01 11:30)
DX: K80.00 Calculus of gallbladder with acute cholecystitis without obstruction (principal)
CPT/HCPCS: 47562; 36415; 76705; 80053; 81001; 81025; 83690; 85025; 85378; 88304; J1100; J1956; J2270; J2405; J2704; J3010; J3490; J7030; S0030

== ENCOUNTER → 2021-12-13 11:24 | Outpatient (BNVA) | payer OTHER, SELFPAY | PROVIDERS: PCP Pediatrics Adolescent Medicine; Visit Provider Nurse Practitioner Family | DX: J02.9 Acute pharyngitis, unspecified (principal) | CPT/HCPCS: 87880 ==

== ENCOUNTER 2023-05-05 19:26 | Outpatient (CLI) | payer OTHER, SELFPAY ==
[2023-05-05 19:26] VITALS: BMI 32.2
[2023-05-05 19:39] VITALS: BP 146/92; PULSE 82
[2023-05-05 19:54] VITALS: BP 134/87; PULSE 81
[2023-05-05 20:09] VITALS: BP 132/85; PULSE 80
[2023-05-05 21:10] VITALS: BP 133/80; PULSE 92
[2023-05-05 21:25] VITALS: BP 134/77; PULSE 73
[2023-05-05 21:40] VITALS: BP 137/88; PULSE 76
== END 2023-05-05 22:08 | disposition home or self-care (01) ==
LOC: OPOB 19:28 → OBGYN 19:29
PROVIDERS: PCP Pediatrics Adolescent Medicine; Visit Provider Family Medicine
DX: O26.899 Other specified pregnancy related conditions, unspecified trimester (principal); Z3A.00 Weeks of gestation of pregnancy not specified; R10.9 Unspecified abdominal pain
CPT/HCPCS: 59025; 99211

== ENCOUNTER 2023-05-06 03:01 | Inpatient (IN) | payer OTHER, SELFPAY ==
[2023-05-06] VITALS (45 sets, daily range): BP systolic 109–167; BP diastolic 55–106; PULSE 57–148; RESP 16–17; TEMP 36.2–36.7; O2SAT 96–100; BMI 32.2
[2023-05-06 02:50] LABS: Basophils % 0.2 %; Eosinophils % 0.4 %; Hematocrit 33.8 % (36-47); Lymphocytes # 3.2 10^3/uL (0.8-4.8); Lymphocytes % 34.3 %; Mean Corpuscular HGB Conc 33.1 g/dL (30-55); Mean Corpuscular Hemoglobin 28.8 pg (27-33); Mean Corpuscular Volume 86.9 fl (85-98); Mean Platelet Volume 12.2 fL (7.4-10.4); Monocytes # 0.8 10^3/uL (0.2-0.9); Monocytes % 8.6 %; Neutrophils # 5.18 10^3/uL (1.8-7.7); Neutrophils % 56.2 %; Nucleated Red Blood Cells % 0 %; Platelet Count 150 10^3/cmm (157-399); Red Blood Count 3.89 10^6/uL (3.85-5.65); Red Cell Distribution Width 13.4 % (12.1-15.1); White Blood Count 9.22 10^3/uL (3.29-11.43)
[2023-05-06] MEDS: lactated ringers 1,000 ML 999 ML IV ×2 (03:15→04:31)
[2023-05-06] MEDS: ROPivacaine syringe 100 MG/50 ML SYRINGE 10 MG EPIDURAL ×2 (05:25→09:09)
--- NOTE | 2023-05-06 05:29 | P.ANESASSM_ITS ---
Pre-Anesthetic Assessment Height/Weight: Height 1.63 m Weight 85.275 kg Pulse Resp BP Pulse Ox O2 Del Method 77 16 130/86 99 Room Air 05/06/23 05:24 05/06/23 02:40 05/06/23 05:24 05/06/23 05:19 05/06/23 03:11 Preop Diagnosis: IUP Labor epidural Familial anesthetic complications: None Was Beta Darby taken within 24 hours: N/A Was Clonidine taken within 24 hours: N/A Social No alcohol and No tobacco Exam alert, oriented x 3, clear to auscultation bilaterally and regular rate & rhythm Airway Mallampati: Class II Dentition: full History/ROS No significant history except as noted Pulmonary None reported CV/HEM None reported None reported Hepatic None reported GI None reported Metabolic None reported Musc/skel None reported Neuropsych None reported Anesthetic Plan ASA status: 2 Anesthesia: Anesthesia Evaluation and Regional (specify below) Risk of > 500 ml blood loss (7ml/kg in children): Yes, adequate IV access and fluids planned Medications/Allergies Home Medications Medication Instructions Recorded Confirmed Last Taken Type mxgwouxo-pct-Yv-FA 1 mg 1 tab PO DAILY 05/05/23 05/06/23 05/05/23 History tablet 1 tab Allergies Allergy/AdvReac Type Severity Reaction Status Date / Time cephalexin [From Keflex] Allergy Unknown Verified 05/06/23 03:37 Current Medications Generic Name Dose Route Start Last Admin Trade Name Freq PRN Reason Stop Dose Admin Lactated Ringer's 1,000 mls @ 999 mls/hr 05/06/23 02:42 05/06/23 05:26 Lactated Ringers IV 125 mls/hr .Q1H1M PRN Infusion See label comments PFSH Anesthesia Medical History COVID-19 Surgical History Status post laparoscopic cholecystectomy (03/01/21) Family History Other CAD (coronary artery disease) Stroke Denies family history of Diabetes Dementia Chronic kidney disease (CKD) Cancer Social History Smoking and tobacco/nicotine status: never used tobacco/nicotine Alcohol intake: never Substance/Drug Use: never Lives independently: Yes Household members: spouse and children Marital status: Female Reproductive History : 2 Data Anesthesia 05/06/23 02:40 Short CBC 05/06/23 Range/Units 02:40 WBC 9.22 (3.29-11.43) 10^3/uL Hgb 11.20 L (11.27-16.99) g/dL Hct 33.8 L (36-47) % MCV 86.9 (85-98) fl Plt Count 150 L (157-399) 10^3/cmm Neut % (Auto) 56.2 % Neut # (Auto) 5.18 (1.8-7.7) 10^3/uL Blood Bank 05/06/23 02:40 Blood Type O Positive Rho(D) Type Rh positive Antibody Screen Negative Cardiac Studies: 2 No Data to Display Anesthesia Procedures Epidural Time Out Performed: Yes Consents Signed: Procedure Consent Consent: requested by attending/covering physician, from patient, risks and benefits reviewed and patient agrees to proceed Lumbar Level: L3-L4 Epidural position: sitting Epidural procedure: sterile prep of area, 1% lidocaine to numb the area, 18 g needle, negative for paresthesia passed, neg for paresthesia, test dose given, 1.5% xylocaine 1:200k epi, 0.2% Ropivacaine bolus ml (5), placed PCEA, no systemic response, sterile dressing applied, L.U.D. no apparent complications and 0.2% Ropiavacaine @ mls/hr (10) Additional Comments: PHILIP 6.5cm, catheter easily threaded to 5cm in the space. Pt educated on SENIOR OPERATIONS MANAGER and reporting decreased pain with contractions.
[2023-05-06] MEDS: dextrose 5%-lactated ringers 1,000 ML 125 ML IV (09:08)
--- NOTE | 2023-05-06 10:32 | PM.OPHPUD ---
Labor & Delivery H&P Update Date of Procedure: May 06, 2023 Date H&P Performed: 05/04/23 Changes to previous documentation: The patient presented to the hospital in active labor with cervical change Admission Diagnosis: 27-year-old 2 para 1-0-0-1 at 39 weeks estimated gestational age presenting in active labor Preop diagnosis: IUP Planned procedure: Spontaneous vaginal delivery Other information: The patient has had an unremarkable . She presented to the hospital last night complaining of contractions and was noted to make cervical change. Her labs have also been relatively unremarkable. Her blood type is O+. Her antibody screen is negative. Her glucose screen was negative. Her group B strep status was negative. She is rubella immune. Her infectious disease profile is within normal limits. She received her Tdap on 03/02/2023 Related Problem List Diagnoses (1) 39 weeks gestation of : A&P Assessment and plan (1) 39 weeks gestation of : I anticipate routine labor and vaginal delivery. Status: Acute
[2023-05-06] MEDS: oxytocin 30 UNIT/500 ML BAG 600 UNIT IV (12:46)
--- NOTE | 2023-05-06 12:55 | PM.DELIVERY ---
Delivery Note: Date of delivery: May 06, 2023 Pre-delivery diagnoses: 27-year-old 2 para 1-0-0-1 at 39 weeks estimated gestational age presenting in active labor Post-delivery diagnoses: Status post spontaneous vaginal delivery Procedure: DELIVERY: The patient progressed to complete without difficulty. She delivered a female with a weight of 8 pounds 1 ounce with Apgars of 9, 9. The baby was delivered from the CRISTY position and placed on the mother's abdomen. The cord was then clamped and cut. There was no nuchal cord. A true knot was noted in the cord. There was no meconium. The placenta and 3 vessel cord were delivered intact shortly thereafter. The perineum and vaginal vault were carefully examined. A couple of superficial vaginal wall lacerations were noted that did not require repair. Both the mother and the baby were in stable condition. Delivering Physician: Kentrell Welch Estimated blood loss (mL): 100 Pre-Delivery Course: The patient presented to the hospital in active labor. An epidural was placed. She had spontaneous rupture of membranes History History History 2 Term 1 0 Miscarriages/Ectopic 0 Living Children 1 A&P Assessment and plan (1) Spontaneous vaginal delivery: I anticipate routine care. Coding Level of Care Code Acute Code for Chg Fwd Diagnoses Spontaneous vaginal delivery O80
[2023-05-06] MEDS: ibuprofen 800 mg tablet PO ×2 (14:45→20:33)
[2023-05-06] MEDS: benzocaine-menthol 78 gm Canister 1 SPRAY TOPICAL (14:45)
[2023-05-06] MEDS: lanolin oint 7 gm 1 APPLIC TOPICAL (14:45)
[2023-05-06] MEDS: docusate sodium 100 mg Capsule PO (18:12)
[2023-05-07 00:34] LABS: Hematocrit 28.7 % (36-47); Mean Corpuscular HGB Conc 32.8 g/dL (30-55); Mean Corpuscular Volume 88.6 fl (85-98); Mean Platelet Volume 11.9 fL (7.4-10.4); Platelet Count 121 10^3/cmm (157-399); Red Blood Count 3.24 10^6/uL (3.85-5.65); Red Cell Distribution Width 13.6 % (12.1-15.1); White Blood Count 9.98 10^3/uL (3.29-11.43)
[2023-05-07 05:00] VITALS: BP 144/91; PULSE 70; RESP 16; TEMP 36.6; O2SAT 97
--- NOTE | 2023-05-07 08:30 | ANE.PACU2 ---
Inpatient post-anesthesia follow up: Airway intact: Yes Vital signs: Temperature 97.9 F Pulse Rate 70 Respiratory Rate 16 Blood Pressure 144/91 Pulse Oximetry 97 Oxygen Delivery Me thod Room Air Oxygen Flow Rate Fraction of Inspir ed Oxygen Hydration adequate: Yes Nausea and vomiting: No Pain level: 1 Mental status: Baseline Epidural Start/End: Epidural Start Date: 05/06/23 Epidural Start Time: 05:00 Epidural End Date: 05/06/23 Epidural End Time: 14:26
--- NOTE | 2023-05-07 08:57 | P.DS_ITS ---
Discharge Providers ADMINISTRATION MANAGER Date of Admission: 05/06/23 03:01 Date of Discharge: 05/07/23 Attending Provider at Admission: Kentrell Welch MD Attending Provider at Discharge: Kentrell Welch MD Diagnoses at Discharge Discharge Diagnosis (1) Spontaneous vaginal delivery: Status: Acute Reason for Visit Reason for Visit: ctx Hospital Course Hospital Course The patient presented to the hospital in active labor. She had an unremarkable labor. She received an epidural. Her delivery was also unremarkable. It was a vertex delivery without complications. Her course was also unremarkable. She breast-fed well. Her bleeding was within normal limits. Her pain was well-controlled. Information Peripartum Data: Infant Delivery Method: Vaginal Physical Exam Narrative: The patient is alert. She appears comfortable. Her heart has a regular rate and rhythm with no murmurs appreciated. Lungs are clear to auscultation bilaterally. Her fundus is firm and below the umbilicus. Urinary Catheter Management: [place]: Cath Placed During This Visit: yes, but has since been removed by the nurse Reason for Continuing Indwelling Catheter: Decision to DC Catheter Urinary Catheter Date of Insertion: 05/06/23 Urinary Catheter Time of Insertion: 06:00 Date Urinary Catheter Removed: 05/06/23 Time Urinary Catheter Discontinued: 12:10 History History History 2 Term 1 0 Miscarriages/Ectopic 0 Living Children 1 Discharge Data Studies Completed and Pending Laboratory Results WBC 9.98 10^3/uL (3.29-11.43) 05/07/23 00:28 RBC 3.24 10^6/uL (3.85-5.65) L 05/07/23 00:28 Hgb 9.40 g/dL (11.27-16.99) L 05/07/23 00:28 Hct 28.7 % (36-47) L 05/07/23 00:28 MCV 88.6 fl (85-98) 05/07/23 00:28 MCH 29.0 pg (27-33) 05/07/23 00:28 MCHC 32.8 g/dL (30-55) 05/07/23 00:28 RDW 13.6 % (12.1-15.1) 05/07/23 00:28 Plt Count 121 10^3/cmm (157-399) L 05/07/23 00:28 MPV 11.9 fL (7.4-10.4) H 05/07/23 00:28 Neut % (Auto) 56.2 % 05/06/23 02:40 Lymph % (Auto) 34.3 % 05/06/23 02:40 [place] % (Auto) 8.6 % 05/06/23 02:40 Eos % (Auto) 0.4 % 05/06/23 02:40 Baso % (Auto) 0.2 % 05/06/23 02:40 Neut # (Auto) 5.18 10^3/uL (1.8-7.7) 05/06/23 02:40 Lymph # (Auto) 3.2 10^3/uL (0.8-4.8) 05/06/23 02:40 [place] # (Auto) 0.8 10^3/uL (0.2-0.9) 05/06/23 02:40 Eos # (Auto) 0.0 10^3/uL (0.0-0.8) 05/06/23 02:40 Baso # (Auto) 0.0 10^3/uL (0.0-0.1) 05/06/23 02:40 Nucleated RBC % (auto) 0 % 05/06/23 02:40 Nucleated RBCs # 0.0 /100WBC 05/06/23 02:40 Blood Type O Positive 05/06/23 02:40 Rho(D) Type Rh positive 05/06/23 02:40 Antibody Screen Negative 05/06/23 02:40 Vitals Last Vital Signs Temp 97.9 F 05/07/23 05:00 Pulse 70 05/07/23 05:00 Resp 16 05/07/23 05:00 BP 144/91 05/07/23 05:00 Pulse Ox 97 05/07/23 05:00 O2 Del Method Room Air 05/07/23 05:00 Results Labs OB ([facility]): Blood Type O Positive 05/06/23 Antibody Screen Negative 05/06/23 Hct 28.7 % (36-47) L 05/07/23 Hgb 9.40 g/dL (11.27-16.99) L 05/07/23 Rho(D) Type Rh positive 05/06/23 Plt Count 121 10^3/cmm (157-399) L 05/07/23 HCG, Qual Negative (Negative) 03/01/21 Discharge Plan Discharge Patient Disposition: Home Condition: Stable Prescriptions: New ibuprofen 800 mg Tablet 800 mg PO TID Qty: 45 0RF Continued xbhyetna-jim-Ka-FA 1 mg Tablet 1 tab PO DAILY Discharge Orders: Discharge Order (Routine); Ordered 05/07/23 Ordered By: Kentrell Welch Referrals: Kentrell Welch MD [Physician] - 6 Weeks Discharge Diet: Usual diet Discharge Activity: Limit activity as instructed Patient Instructions: Depression (DC), Preeclampsia During (DC), Opioid Safety (DC), Hemorrhage (DC), OB Discharge Report, OB Food/Drug Interaction Guide, OB Care at Home, Opioid Safety, Abnormal Bleeding Discharge Attestations ADMINISTRATION MANAGER Time Spent in Discharge Care*: less than 30 min Coding Level of Care Code Acute Code for Chg Fwd Diagnoses Spontaneous vaginal delivery O80
[2023-05-07] MEDS: ibuprofen 800 mg tablet PO (09:07)
[2023-05-07] MEDS: docusate sodium 100 mg Capsule PO (09:07)
[2023-05-07] MEDS: PRENATAL VIT NO.130/IRON/FOLIC 1 EACH TABLET PO (09:07)
[2023-05-07 10:00] VITALS: BP 129/79; PULSE 80; RESP 16; TEMP 36.6
[2023-05-07 14:00] VITALS: BP 146/83; PULSE 82; RESP 18; TEMP 36.4
[2023-05-07 14:40] VITALS: BP 146/83; PULSE 82; RESP 18; TEMP 36.4
== END 2023-05-07 14:40 | disposition home or self-care (01) | DRG 807 ==
LOC: OBGYN 08:44 → OPOB 12:14 → OBGYN 12:14
PROVIDERS: Admitting Provider Family Medicine; PCP Pediatrics Adolescent Medicine; Visit Provider Family Medicine
DX: O69.2XX0 Labor and delivery complicated by other cord entanglement, with compression, not applicable or unspecified (principal); Z37.0 Single live birth; Z3A.39 39 weeks gestation of pregnancy
CPT/HCPCS: 36415; 51702; 59409; 85025; 85027; 86850; 86900; J2590; J2795; J7120; J7121